=== PATIENT | male | born 1980 | race Caucasian/White ===

== ENCOUNTER 2019-08-04 22:08 | Emergency (ER) | payer MEDICAID ==
[~2019-08-04] VITALS: Ht 180.3 cm; Wt 77.1 kg
[2019-08-04 22:18] VITALS: BP_SYST 117
[2019-08-04] MEDS ORDERED: LIDOCAINE 1%, 20 ML MDV 20 ML ONE (23:07)
[2019-08-04 23:18] VITALS: BP_SYST 117
== END 2019-08-04 23:18 | disposition home or self-care (01) ==
LOC: SED 22:08
DX: S50.351A Superficial foreign body of right elbow, initial encounter (principal); W22.8XXA Striking against or struck by other objects, initial encounter; Y93.89 Activity, other specified; Y92.89 Other specified places as the place of occurrence of the external cause; Y99.8 Other external cause status
CPT/HCPCS: 73070; 99284; J2001